=== PATIENT | male | born 1985 | race Caucasian/White ===

== ENCOUNTER 2024-09-11 17:36 | Emergency (ER) | payer OTHER, SELFPAY ==
[2024-09-11 17:40] VITALS: BP 163/98
--- NOTE | 2024-09-11 17:41 | ED.GENMED ---
ED Provider Triage
<Rj Lieberman PA-C - Last Filed: 09/11/24 17:43>
-
Patient seen by provider in Triage?: Seen in Triage
Attestation: A medical screening examination has been initiated by a qualified medical provider. Based on the assessment performed at this time, it has been determined that an emergent medical condition may exist and the patient has been informed
that further medical evaluation and possible additional diagnostic testing may be needed.
HPI: Patient presenting to the emergency department for evaluation of left index finger laceration from a table saw. Unknown last tetanus. Patient [id number]. Patient to be placed back into hallway bed for wound irrigation and wound care.
GENERAL: Alert , in no apparent distress
EYE: No visual abnormalities.
NECK: Trachea midline
ENT: No visible abnormalities.
LUNGS: No acute respiratory distress
NEUROLOGICAL: Alert and oriented
SKIN: Laceration to the left index finger. Bleeding controlled with pressure
MUSCULOSKELETAL: Moving extremities normally
PSYCH: Normal and appropriate interaction.
This is a medical evaluation conducted in person to initiate diagnostic evaluation and provide initial therapeutics. Please see further documentation by the treating clinician.
History of Present Illness
<Rj Lieberman PA-C - Last Filed: 09/11/24 17:43>
General
Chief Complaint: Skin Surface Trauma
Time Seen by Provider: 09/11/24 20:20
<Luisa Bello PA-C - Last Filed: 09/11/24 23:46>
General
Source: patient
Exam Limitations: none
Nursing documentation reviewed up to this point in time: agreed with
History of Present Illness
History of Present Illness:
39 y/o M with R hand dominance
here with left index finger laceration from table saw
bleeding controlled
deos not believe there is FB in the laceration
tetanus outdated, given here
no numbness/tingling/weakness
no thinenrs.
Past History
<Rj Lieberman PA-C - Last Filed: 09/11/24 17:43>
Past History
ED Past Medical History: None
ED Past Surgical History: None
<IDA Sheffield Last Filed: 09/11/24 23:46>
Social History
Tobacco: Non-smoker
Review of Systems
<Luisa Bello PA-C - Last Filed: 09/11/24 23:46>
Review of Systems
Allergies reviewed?: Yes
All Other Systems: Not applicable
Phy Exam
<IDA Sheffield Last Filed: 09/11/24 23:46>
Physical Exam
Physical Exam:
GENERAL: Alert , in no apparent distress, comfortable at rest
HEAD: NCAT
CV: cap refill intact
NEUROLOGICAL: Alert and oriented, no focal neuro deficits, , 5/5 strength, sensation intact, ambulation slight limp right leg
SKIN: Warm and dry, laceration left index finger approx 1.5 cm along the lateral fold of the nail plate and around to fat pad slightly
MUSCULOSKELETAL: finger laceration left index 1.5 cm; not bleeding; no fb;
full ROM
PSYCH: Normal and appropriate interaction.
Course
<IDA Jones Last Filed: 09/11/24 17:43>
Orders/Labs/Results
Orders:
Orders
09/11/24 17:41
Tetanus/Diphth/Acelpertussis [Adacel] 0.5 ml IM .ONCE ONE
09/11/24 20:41
Finger(s)/Thumb 2 View Lt [CR Finger(s)/thumb Min 2 Vw Lt] Urgent
Comment:
Reason For Exam: index finger table saw laceration
09/11/24 21:22
Cephalexin Monohydrate [Keflex] 500 mg PO NOW STA
Vital Signs
Initial and Last Documented VS:
Initial Vital Signs
Temp Pulse Resp BP Pulse Ox
98.5 F 89 18 163/98 98
09/11/24 17:40 09/11/24 17:40 09/11/24 17:40 09/11/24 17:40 09/11/24 17:40
Last Documented Vital Signs
Temp Pulse Resp BP Pulse Ox
97.6 F 84 17 140/83 98
09/11/24 21:55 09/11/24 21:55 09/11/24 21:55 09/11/24 21:55 09/11/24 21:55
<Luisa Bello PA-C - Last Filed: 09/11/24 23:46>
Orders/Labs/Results
Orders:
Orders
09/11/24 17:41
Tetanus/Diphth/Acelpertussis [Adacel] 0.5 ml IM .ONCE ONE
09/11/24 20:41
Finger(s)/Thumb 2 View Lt [CR Finger(s)/thumb Min 2 Vw Lt] Urgent
Comment:
Reason For Exam: index finger table saw laceration
09/11/24 21:22
Cephalexin Monohydrate [Keflex] 500 mg PO NOW STA
Vital Signs
Initial and Last Documented VS:
Initial Vital Signs
Temp Pulse Resp BP Pulse Ox
98.5 F 89 18 163/98 98
09/11/24 17:40 09/11/24 17:40 09/11/24 17:40 09/11/24 17:40 09/11/24 17:40
Last Documented Vital Signs
Temp Pulse Resp BP Pulse Ox
97.6 F 84 17 140/83 98
09/11/24 21:55 09/11/24 21:55 09/11/24 21:55 09/11/24 21:55 09/11/24 21:55
Procedures
<Luisa Bello PA-C - Last Filed: 09/11/24 23:46>
Digital Block
Location of injection for digital block: base of digit
Indiction for Digital Block: anesthesia for exam
Was sensory exam normal prior to exam?: intack pin prick
Type of anesthesia: 1% Lidocaine w/o EPI
Complications: none- good anesthesia
<Luisa Bello PA-C - Last Filed: 09/11/24 23:46>
MDM/Problems Addressed
Differential Diagnosis Includes:
laceration open fracture
MDM/Problems Addressed:
39 y/o M
R hand domiant
L index finger distsal laceration from table saw
the laceration is linear, skin is not macerated
nail plate is intact mostly, the laceration goes vertically ada gthe lateral nail fold
xray indep reviewed, with small tuft fx
digitial block, irreigated, scrubbed
sterristrip to laceration
bulky dressing
d/c with finger splint
f/u with hand
keflex
tetnaus
<Luisa Bello PA-C - Last Filed: 09/11/24 23:46>
*Critical Care Note
Total Time (30-74mins, 75-104mins- exclusive of procedures): Not Applicable
ED Attending Note
<Rj Lieberman PA-C - Last Filed: 09/11/24 17:43>
-
Portions of this chart may have been created with voice recognition software.� Occasional wrong word or��sound alike� substitutions may have occurred due to the inherent limitations of voice recognition software.
Discharge Plan
Departure
Patient Disposition: Home (Routine Discharge)
Date of Disposition: 09/11/24
Time of Disposition: 21:51
Patient with high blood pressure during this ER visit?: Yes
Discharge Problem:
Open fracture of tuft of distal phalanx of finger
Instructions: Wound Care (DC)
Prescriptions:
New
cephalexin 500 mg capsule
500 mg PO Q8H Qty: 21 0RF
No Action
moxifloxacin [Vigamox] 0.5 % drops
1 drp OPHTHALMIC Q4HWA Qty: 1 0RF
Referrals:
Alvaro Mace I., DO [Family Provider] -
Rodrigue Soto MD [Active] - Follow up in 5-7 days (ORTHOPEDICS HAND)
Activity Restrictions/Additional Instructions:
KEEP THE WOUND CLEAN AND DRY
LEAVE THE DRESSING IN PLACE TODAY AND TOMORROW, REMOVE ON SATURDAY
WASH TWICE A DAY WITH SOAP AND WATER.
DRY AND APPLY A DRESSING
USE THE FINGER SPLINT TO PROTECT THE FINGER
FOLLOW UP WITH ORTHOPEDICS
TAKE KEFLEX 500 MG 3 TIMES ADAY FOR 7 DAYS TO HOPEFULLY PREVENT INFECTION
RETURN FOR ANY CONCERNS.
Interventions
Interventions:
*Risk Screen - Suicide Last Done: 09/11/24 17:40
*General Assessment Last Done: 09/11/24 17:40
*Neglect/Abuse Screening Last Done: 09/11/24 17:40
ED- Fall Risk Assessment Last Done: 09/11/24 21:55
*ED COVID-19 Vaccine History Last Done: 09/11/24 17:40
*Nursing Disposition Last Done: 09/11/24 21:55
ED-Skin Assessment Last Done: 09/11/24 21:57
Discharge Date and Time
Discharge Date/Time: 09/11/24 21:57
Print Language: ICELANDIC
[2024-09-11] MEDS: ADACEL 0.5 ML IM (19:25)
[2024-09-11] MEDS: KEFLEX 500 MG PO (21:51)
[2024-09-11 21:55] VITALS: BP 140/83
== END 2024-09-11 21:57 | disposition home or self-care (01) ==
LOC: EMR 17:36
PROVIDERS: EMERGENCY PHYSICIAN Emergency Medicine; FAMILY PHYSICIAN Internal Medicine
DX: S61.211A Laceration without foreign body of left index finger without damage to nail, initial encounter (principal); W31.2XXA Contact with powered woodworking and forming machines, initial encounter; Z23 Encounter for immunization
CPT/HCPCS: 99283; 29130; 90471; 73140; 90715

== ENCOUNTER 2024-09-14 12:00 | Emergency (ER) | payer OTHER, SELFPAY ==
[2024-09-14 12:03] VITALS: BP 134/101
--- NOTE | 2024-09-14 12:11 | ED.GENMED ---
ED Provider Triage
<Curtis Angel PA-C - Last Filed: 09/14/24 12:12>
-
Patient seen by provider in Triage?: Seen in Triage
39-year-old otherwise healthy male presents with 5 to 6 days worth of fever fatigue body aches. There is a slight cough and mild chest discomfort as well. No known sick contacts. Vital signs are stable at triage. COVID flu test ordered will
check labs and an x-ray as well as EKG.
History of Present Illness
<Curtis Angel PA-C - Last Filed: 09/14/24 12:12>
General
Chief Complaint: Cold/Flu/URI Symptoms
Time Seen by Provider: 09/14/24 14:18
<Rj Lieberman PA-C - Last Filed: 09/16/24 08:20>
General
Source: patient
History of Present Illness
History of Present Illness:
39-year-old male with past medical history of bipolar disorder presenting to the emergency department for evaluation of generalized bodyaches for the last few days, mild nausea with occasional vomiting, intermittent chills and sweats but no
documented fevers. Patient also notes some slight chest discomfort but attributed this to working outdoors on his deck and lifting heavier objects. Patient notes no sick contacts, recent travel or recent antibiotics. Otherwise denying abdominal
pain, back or flank pain, shortness of breath, dyspnea on exertion and orthopnea.
Past History
<Curtis Angel PA-C - Last Filed: 09/14/24 12:12>
Past History
ED Past Medical History: None
ED Past Surgical History: None
Social History
Tobacco: Non-smoker
<Rj Lieberman PA-C - Last Filed: 09/16/24 08:20>
Past History
ED Past Medical History: Psychiatric
Social History
Alcohol: None
Drug: None
Personal: Single
Living: with family
Review of Systems
<Rj Lieberman PA-C - Last Filed: 09/16/24 08:20>
Review of Systems
All Other Systems: ROS reviewed and negative except as documented in HPI and ROS
Phy Exam
<Rj Lieberman PA-C - Last Filed: 09/16/24 08:20>
Physical Exam
Physical Exam:
GENERAL: Alert , in no apparent distress
EYE: conjunctiva clear
NECK: Supple
ENT: mmm.
CARDIAC: Regular rate and rhythm
LUNGS: Clear breath sounds bilaterally, no acute respiratory distress, no wheezes/rales/rhonchi
ABDOMEN: soft, non-tender, non distended, no r/g
NEUROLOGICAL: Alert and oriented
SKIN: Warm and dry, skin intact. no rashes
MUSCULOSKELETAL: well perfused.
PSYCH: Normal and appropriate interaction.
Scores
<IDA Jones Last Filed: 09/16/24 08:20>
Heart Failure Risk
Heart Failure Risk Score: Not Applicable
Heart Score for Chest Pain Patients
STEMI patient?: Not applicable
Withdrawal Assessment of Alcohol
Withdrawal Assessment Completed?: Not applicable
Course
<Curtis Angel PA-C - Last Filed: 09/14/24 12:12>
Orders/Labs/Results
Orders:
Orders
09/14/24 12:10
Electrocardiogram (*1) Urgent
Reason for Study: Chest Pain
EKG- Treatment ONCE
09/14/24 12:18
COVID-19 Antigen Urgent
Source: Nasal Swab
Complete Blood Count/With Diff Urgent
Comprehensive Metabolic Panel Urgent
Influenza A+B Rapid Molecular Urgent
[place] Source: Nasal Swab
Specimen Description:
09/14/24 14:17
CR Chest - 2 Views Urgent
Comment:
Reason For Exam: cough, chills
09/14/24 14:25
Ondansetron Orally Disint [Zofran Odt (Orally Disintegrating)] 4 mg PO NOW STA
Abnormal Lab Results
09/14/24
12:18
Glucose 123 H mg/dl
(70-99)
ALT 59 H U/L
(0-50)
09/14/24 12:18
09/14/24 12:18
Vital Signs
Initial and Last Documented VS:
Initial Vital Signs
Temp Pulse Resp BP Pulse Ox
98.8 F 103 18 134/101 98
09/14/24 12:03 09/14/24 12:03 09/14/24 12:03 09/14/24 12:03 09/14/24 12:03
Last Documented Vital Signs
Temp Pulse Resp BP Pulse Ox
98.8 F 97 18 128/86 98
09/14/24 12:03 09/14/24 16:12 09/14/24 16:12 09/14/24 16:12 09/14/24 16:12
<Rj Lieberman PA-C - Last Filed: 09/16/24 08:20>
Orders/Labs/Results
Orders:
Orders
09/14/24 12:10
Electrocardiogram (*1) Urgent
Reason for Study: Chest Pain
EKG- Treatment ONCE
09/14/24 12:18
COVID-19 Antigen Urgent
Source: Nasal Swab
Complete Blood Count/With Diff Urgent
Comprehensive Metabolic Panel Urgent
Influenza A+B Rapid Molecular Urgent
[place] Source: Nasal Swab
Specimen Description:
09/14/24 14:17
CR Chest - 2 Views Urgent
Comment:
Reason For Exam: cough, chills
09/14/24 14:25
Ondansetron Orally Disint [Zofran Odt (Orally Disintegrating)] 4 mg PO NOW STA
Abnormal Lab Results
09/14/24
12:18
Glucose 123 H mg/dl
(70-99)
ALT 59 H U/L
(0-50)
09/14/24 12:18
09/14/24 12:18
Vital Signs
Initial and Last Documented VS:
Initial Vital Signs
Temp Pulse Resp BP Pulse Ox
98.8 F 103 18 134/101 98
09/14/24 12:03 09/14/24 12:03 09/14/24 12:03 09/14/24 12:03 09/14/24 12:03
Last Documented Vital Signs
Temp Pulse Resp BP Pulse Ox
98.8 F 97 18 128/86 98
09/14/24 12:03 09/14/24 16:12 09/14/24 16:12 09/14/24 16:12 09/14/24 16:12
<Rj Lieberman PA-C - Last Filed: 09/16/24 08:20>
MDM/Problems Addressed
Differential Diagnosis Includes:
covid, flu, viral syndrome, pneumonia, pericarditis/myocarditis
MDM/Problems Addressed:
39-year-old male presenting to the emergency department for evaluation of generally feeling unwell over the last 5 or 6 days. No known sick contacts, recent travel or recent antibiotics. Labs were initiated in triage and are unremarkable other
than very mild elevation of patient's ALT which could be reactive from some of the vomiting has been having. EKG nonischemic. Chest x-ray ordered. Zofran given for symptomatic relief. Anticipate discharge home following.
<Rj Lieberman PA-C - Last Filed: 09/16/24 08:20>
*Radiology
Radiology exam reviewed: preliminary read by ED provider (normal CXR)
*Pulse Oximetry
Patient hypoxic: no
*EKG
Interpreted by ED Provider?: Yes
Heart Rate: 76
Rate: normal
Rhythm: sinus
Ischemia: no ischemia
*Critical Care Note
Total Time (30-74mins, 75-104mins- exclusive of procedures): Not Applicable
<Rj Lieberman PA-C - Last Filed: 09/16/24 08:20>
Patient Management
Escalation/DeEscalation of care consider admission/obs:
Work up without any acute emergent findings. Patient stable for d/c home. Aware of return precautions to the ER
ED Attending Note
<Curtis Angel PA-C - Last Filed: 09/14/24 12:12>
-
Portions of this chart may have been created with voice recognition software.� Occasional wrong word or��sound alike� substitutions may have occurred due to the inherent limitations of voice recognition software.
Discharge Plan
Departure
Patient Disposition: Home (Routine Discharge)
Date of Disposition: 09/14/24
Time of Disposition: 15:51
Patient with high blood pressure during this ER visit?: Yes
Discharge Problem:
Body aches, Nausea with vomiting
Instructions: Viral Syndrome (DC)
Prescriptions:
New
ondansetron 4 mg tablet,disintegrating
4 mg PO TIDPRN PRN (Reason: nausea/vomiting) Qty: 10 0RF
No Action
moxifloxacin [Vigamox] 0.5 % drops
1 drp OPHTHALMIC Q4HWA Qty: 1 0RF
cephalexin 500 mg capsule
500 mg PO Q8H Qty: 21 0RF
Referrals:
Alvaro Mace I., DO [Family Provider] -
Stand Alone Forms: Return to Work
Interventions
Interventions:
*Risk Screen - Suicide Last Done: 09/14/24 12:03
*General Assessment Last Done: 09/14/24 12:03
*Neglect/Abuse Screening Last Done: 09/14/24 16:12
*ED COVID-19 Vaccine History Last Done: 09/14/24 12:03
*Nursing Disposition Last Done: 09/14/24 16:12
ED- Pulmonary Assessment Last Done: 09/14/24 16:02
Discharge Date and Time
Discharge Date/Time: 09/14/24 16:14
Print Language: GREENLANDIC
[2024-09-14 12:46] LABS: Hematocrit 46.5 % (39.0-52.0); Hemoglobin 16.7 g/dL (13.0-18.0); Mean Corp Hgb Conc. 35.9 g/dL (33.0-37.0); Mean Corpuscular Hgb 30.3 pg (27.0-31.0); Mean Corpuscular Volume 84.4 fL (80.0-94.0); Mean Platelet Volume 9.5 fL (7.4-10.4); Platelet Count 251 10^3/uL (130-400); Red Blood Cell Count 5.51 10^6/uL (4.70-6.10); Red Cell Dist. Width 11.9 % (11.5-14.5); White Blood Cell Count 6.3 10^3/uL (4.8-10.8)
[2024-09-14 12:49] LABS: ALT (SGPT) 59 U/L (0-50); AST (SGOT) 35 U/L (17-59); Alkaline Phosphatase 48 U/L (38-126); Blood Urea Nitrogen 12 mg/dl (9-20); Carbon Dioxide 25 mmol/L (22-30); Chloride 102 mmol/L (98-107); Glucose 123 mg/dl (70-99); Potassium 4.1 mmol/L (3.5-5.1); Sodium 142 mmol/L (135-145); Total Bilirubin 0.7 mg/dl (0.2-1.3); Total Protein 7.9 g/dl (6.3-8.2); eGFR > 60.00
[2024-09-14 12:56] LABS: COVID-19 Antigen Negative (Negative)
[2024-09-14 13:37] LABS: % Basophils 0.2 % (0-2); % Immature Granulocytes 0.5 % (0-0.5); % Lymphocytes 26.1 % (20.5-51.1); % Monocytes 5.9 % (1.7-9.3); % Neutrophils 67.3 % (42.2-75.2); Absolute Lymphocytes 1.6 10^3/uL (1.2-3.4); Absolute Monocytes 0.4 10^3/uL (0.1-0.6); Absolute Neutrophils 4.2 10^3/uL (1.4-6.5); Nucleated Red Blood Cells % 0 % (-)
[2024-09-14] MEDS: ZOFRAN ODT (ORALLY DISINTEGRATING) 4 MG PO (14:28)
[2024-09-14 16:12] VITALS: BP 128/86
== END 2024-09-14 16:14 | disposition home or self-care (01) ==
LOC: EMR 12:00
PROVIDERS: Physician Assistant; EMERGENCY PHYSICIAN Emergency Medicine; FAMILY PHYSICIAN Internal Medicine
DX: R11.2 Nausea with vomiting, unspecified (principal); R52 Pain, unspecified; F31.9 Bipolar disorder, unspecified; Z11.52 Encounter for screening for COVID-19
CPT/HCPCS: 99285; 71046; 80053; 85025; 87502; 87811; 93005